=== PATIENT | female | born 1990 | race Caucasian/White ===

== ENCOUNTER 2019-12-20 09:54 | Outpatient (CLI) | payer BC, SELFPAY ==
--- NOTE | 2019-12-20 11:00 | NEURO_ITS ---
Patient Number: [id number] Impression: # Complains of pain in upper extremities. # No Carpal Tunnel Syndrome. # No ulnar neuropathy. # Normal needle/EMG exam. Nerve Conduction Studies Anti Sensory Summary Table Stim Site NR Peak (ms) P-T Amp (?V) Site1 Site2 Delta-P (ms) Dist (cm) Isaac (m/s) Left Median Anti Sensory (2-3nd Digit) Wrist 2.5 80.0 Wrist 2-3nd Digit 2.5 14.0 56 Wrist 2.5 83.4 Wrist 2-3nd Digit 2.5 14.0 56 Right Median Anti Sensory (2-3nd Digit) Wrist 2.6 66.6 Wrist 2-3nd Digit 2.6 14.0 54 Wrist 2.4 62.5 Wrist 2-3nd Digit 2.6 14.0 54 Left Radial Anti Sensory (Base 1st Digit) Wrist 2.5 27.8 Wrist Base 1st Digit 2.5 0.0 Right Radial Anti Sensory (Base 1st Digit) Wrist 2.2 21.8 Wrist Base 1st Digit 2.2 0.0 Left Ulnar Anti Sensory (5th Digit) Wrist 2.3 54.5 Wrist 5th Digit 2.3 14.0 61 Right Ulnar Anti Sensory (5th Digit) Wrist 2.3 60.0 Wrist 5th Digit 2.3 14.0 61 Motor Summary Table Stim Site NR Onset (ms) O-P Amp (mV) Site1 Site2 Delta-0 (ms) Dist (cm) Isaac (m/s) Left Median Motor (Abd Poll Brev) Wrist 3.1 4.9 Elbow Wrist 5.1 30.0 59 Elbow 8.2 3.0 Right Median Motor (Abd Poll Brev) Wrist 2.9 8.8 Elbow Wrist 4.5 29.0 64 Elbow 7.4 3.0 Left Ulnar Motor (Abd Dig Minimi) Wrist 2.3 5.3 A Elbow Wrist 4.9 31.0 63 A Elbow 7.2 4.9 Right Ulnar Motor (Abd Dig Minimi) Wrist 3.0 7.6 A Elbow Wrist 5.2 31.0 60 A Elbow 8.2 6.2 F Wave Studies NR F-Lat (ms) L-R F-Lat (ms) Left Median (Mrkrs) (Abd Poll Brev) 28.71 0.53 Right Median (Mrkrs) (Abd Poll Brev) 29.24 0.53 Left Ulnar (Mrkrs) (Abd Dig Min) 27.34 1.03 Right Ulnar (Mrkrs) (Abd Dig Min) 28.38 1.03 EMG Side Muscle Nerve Root Ins Act Fibs Amp Dur Recrt Comment Right 1stDorInt Ulnar C8-T1 Nml Nml Nml Nml Nml Right Ext Indicis Radial (Post Int) C7-8 Nml Nml Nml Nml Nml Right Ext Digitorum Radial (Post Int) C7-8 Nml Nml Nml Nml Nml Right BrachioRad Radial C5-6 Nml Nml Nml Nml Nml Right PronatorTeres Median C6-7 Nml Nml Nml Nml Nml Right Abd Poll Brev Median C8-T1 Nml Nml Nml Nml Nml Left 1stDorInt Ulnar C8-T1 Nml Nml Nml Nml Nml Left Ext Indicis Radial (Post Int) C7-8 Nml Nml Nml Nml Nml Left Ext Digitorum Radial (Post Int) C7-8 Nml Nml Nml Nml Nml Left BrachioRad Radial C5-6 Nml Nml Nml Nml Nml Left PronatorTeres Median C6-7 Nml Nml Nml Nml Nml Left Abd Poll Brev Median C8-T1 Nml Nml Nml Nml Nml Right ABD Dig Min Ulnar C8-T1 Nml Nml Nml Nml Nml Left ABD Dig Min Ulnar C8-T1 Nml Nml Nml Nml Nml MTDD
== END 2019-12-20 09:55 | disposition home or self-care (01) ==
LOC: ANHNEURO 10:06
PROVIDERS: PCP Internal Medicine; Visit Provider Internal Medicine
DX: M79.622 Pain in left upper arm (principal); M79.621 Pain in right upper arm
CPT/HCPCS: 95886; 95911

== ENCOUNTER 2021-01-07 10:00 | Outpatient (CLI) | payer BC, SELFPAY ==
--- NOTE | ~2021-01-07 | XR_ITS ---
EXAMINATION: XR hand LT min 3V EXAM DATE: 01/07/2021 10:15 INDICATION:. No known recent injury provided at this time. Pain of the left thumb. TECHNIQUE: Left hand frontal, lateral and oblique projections obtained and reviewed. There is no aleksandar or study for comparison. FINDINGS: Left metacarpal bones are unremarkable. There are no acute fractures or dislocations ident ified. There is no subcutaneous gas. The soft tissue is unremarkable. There are no radiopaque for eign bodies. IMPRESSION: Unremarkable left hand x-ray. Reviewed, dictated and finalized at location A.
== END 2021-01-07 10:01 | disposition home or self-care (01) ==
PROVIDERS: PCP Internal Medicine; Visit Provider Nurse Practitioner
DX: M79.645 Pain in left finger(s) (principal)
CPT/HCPCS: 73130

== ENCOUNTER 2021-01-20 13:27 | Outpatient (CLI) | payer BC, SELFPAY ==
--- NOTE | ~2021-01-20 | MR_ITS ---
EXAMINATION: MR hand LT wo con DATE: 01/20/2021 14:32 INDICATION: Left thumb injury and pain and swelling at the first interphalangeal joint. TECHNIQUE: Magnetic resonance imaging (MRI) of the left hand was performed without intravenous contra st. Sequences included axial, sagittal, and coronal T2-weighted FS FSE and T1-weighted FS FSE and cor onal PD-weighted FS FSE. COMPARISON: Left hand radiographs 01/07/2021 FINDINGS: Bone alignment is normal. No fracture. There is no complete collateral ligament tear. There is a small volume of fluid adjacent to the flexor and extensor tendons at the first interphalangeal joint. The tendons are normal. The flexor pulleys are normal. IMPRESSION: 1. No specific injury identified. Reviewed, dictated and finalized at location A.
== END 2021-01-20 13:28 | disposition home or self-care (01) ==
PROVIDERS: PCP Internal Medicine; Visit Provider Nurse Practitioner
DX: M79.645 Pain in left finger(s) (principal)
CPT/HCPCS: 73218

== ENCOUNTER 2021-08-24 02:08 | Day surgery (SDC) | payer BC, SELFPAY ==
[2021-08-14 12:49] VITALS: BMI 32.8
[2021-08-24 08:07] VITALS: BP 106/64; PULSE 65; RESP 18; TEMP 36.2; O2SAT 98
--- NOTE | 2021-08-24 08:13 | P.PNAN_ITS ---
Anes - Initial Pre Proc Eval Procedure: Operation Date: 08/24/21 09:00 Proposed Procedures p Colonoscopy - Ian Arias MD Date/Time: 08/24/21 08:13 Surgeon: Ian Arias MD Pre Op Diagnosis: melena Patient Data Age: 31 Gender: F Height: 1.7 m Weight: 95 kg Allergies Allergy/AdvReac Type Severity Reaction Status Date / Time povidone-iodine Allergy Mild Hives Verified 08/24/21 08:06 iodine Allergy Unknown Hives Verified 08/24/21 08:06 shellfish derived Allergy Anaphylaxis Verified 08/24/21 08:06 Home Medications Medication Instructions Recorded Confirmed Type alprazolam 0.5 mg tablet 0.5 mg PO DAILY PRN #30 tablet 11/26/20 08/14/21 Rx sertraline 100 mg tablet 100 mg PO DAILY #90 tablet 05/05/21 08/14/21 Rx sertraline 50 mg tablet 50 mg PO DAILY #90 tablet 05/05/21 08/14/21 Rx bupropion HCl 150 mg 24 hr tablet, See Rx Instructions .ROUTE 07/13/21 08/14/21 Rx extended release .COMPLEX #90 tablet phentermine 37.5 mg tablet 37.5 mg PO DAILY #30 tablet 07/17/21 08/14/21 Rx Patient hx anesthesia problems: none Family hx anesthesia problems: none Results Review: All pre-operative results and documents have been reviewed as part of the pre-operative evaluation. [facility] Past Medical History Medical History (Updated 07/17/21 @ 11:32 by Tania Resendiz NP) Anxiety Diabetes mellitus Elevated liver enzymes Hyperglycemia Major depressive disorder Myalgia Obesity (BMI 30.0-34.9) Personal history of latent tuberculosis infection Polyarthralgia Family History Family History Mother Family history of thyroid disease Diabetes mellitus Family history of gastrointestinal disorder Family history of irritable bowel syndrome Family history of lupus erythematosus Family history of diabetes mellitus in first degree relative Father Family history of alcoholism Social History Social History (Updated 07/17/21 @ 11:01 by Lianne Bender) Social History: hkyqlevm-1-3 cups daily Smoking packs per day: 0.5 Smoking cigarettes per day: 10.0 Years smoked: 5 Smoking pack-years: 2.50 Smoking status: Former smoker Tobacco type: cigarettes Smoking end date: 10/10/10 Alcohol intake: current Alcohol use details: Pt drinks occasionally. Substance use: never Substance use type: does not use Living arrangements: with friend(s) Spiritual care concerns: No Anes - Eval Final PreProcedure Day of Procedure 08/24/21 08:13 Patient weight: obese Heart: regular rate and rhythm Lungs: clear to auscultation and normal air movement Airway: Mallampati scale class II Neurological: alert and oriented Last oral intake: >/= 8 hours ASA classification: III Emergent: no Anesthetic plan: proceed Anesthesia type and monitoring: general GIVS Results Review: All pre-operative results and documents have been reviewed as part of the pre-operative evaluation. Informed Consent: The patient's anesthetic plan and its attendant risks and benefits were discussed with the patient/family/POA. Questions were solicited and answers provided to the satisfaction of the patient/family/POA.
[2021-08-24] MEDS: LACTATED RINGERS 1,000 ML 150 ML IV CONT (08:18)
[2021-08-24 08:21] VITALS: BMI 34.2
--- NOTE | 2021-08-24 08:45 | WPDGICN ---
Assessment and Plan Assessment and plan (1) Blood in stool: Code(s): K92.1 - Melena Status: Acute Assessment and Plan: Patient had bloody stools that occurred 1 day 1 month ago. Plan is for colonoscopy to evaluate more thoroughly. Further recommendations will be given after endoscopy. GI Consult Note Consult date/time: 08/24/21 08:45 HPI: Nichelle Elizabeth is a 31 year old female Presents for colonoscopy. Patient reports a 1 day history of bloody stools that occurred month and a half ago. It was associated with cramping. She has not had bleeding before after that. She states it was relatively bright blood that was admixed with her stools. Patient also reports that she has intermittently had nose bleeds and vaginal bleeding. She relates most of this after receiving a COVID vaccine. She denies any weight loss. Her family history is noncontributory. She has never had prior colonoscopy. Patient presents today for evaluation Review of Systems Review of Systems: All systems reviewed & are unremarkable except as noted in HPI and below PMFSH Past Medical History Medical History (Updated 08/24/21 @ 08:46 by Ian Arias MD) Anxiety Diabetes mellitus Elevated liver enzymes Hyperglycemia Major depressive disorder Myalgia Obesity (BMI 30.0-34.9) Personal history of latent tuberculosis infection Polyarthralgia Family History Family History Mother Family history of thyroid disease Diabetes mellitus Family history of gastrointestinal disorder Family history of irritable bowel syndrome Family history of lupus erythematosus Family history of diabetes mellitus in first degree relative Father Family history of alcoholism Social History Social History (Updated 07/17/21 @ 11:01 by Lianne Bender) Social History: pcskxahs-1-7 cups daily Smoking packs per day: 0.5 Smoking cigarettes per day: 10.0 Years smoked: 5 Smoking pack-years: 2.50 Smoking status: Former smoker Tobacco type: cigarettes Smoking end date: 10/10/10 Alcohol intake: current Alcohol use details: Pt drinks occasionally. Substance use: never Substance use type: does not use Living arrangements: with friend(s) Spiritual care concerns: No Meds Home Medications and Allergies Home Medications Medication Instructions Recorded Confirmed Type alprazolam 0.5 mg tablet 0.5 mg PO DAILY PRN #30 tablet 11/26/20 08/14/21 Rx sertraline 100 mg tablet 100 mg PO DAILY #90 tablet 05/05/21 08/14/21 Rx sertraline 50 mg tablet 50 mg PO DAILY #90 tablet 05/05/21 08/14/21 Rx bupropion HCl 150 mg 24 hr tablet, See Rx Instructions .ROUTE 07/13/21 08/14/21 Rx extended release .COMPLEX #90 tablet phentermine 37.5 mg tablet 37.5 mg PO DAILY #30 tablet 07/17/21 08/14/21 Rx Allergies Allergy/AdvReac Type Severity Reaction Status Date / Time povidone-iodine Allergy Mild Hives Verified 08/24/21 08:06 iodine Allergy Unknown Hives Verified 08/24/21 08:06 shellfish derived Allergy Anaphylaxis Verified 08/24/21 08:06 Vital Signs Vital Signs - 24 hr 08/24/21 08:07 Temperature 97.2 F L Pulse Rate 65 Respiratory Rate 18 Blood Pressure 106/64 Pulse Oximetry 98 Exam Narrative: physical exam reveals patient to be alert. Vital signs stable. HEENT exam is unremarkable. Patient is anicteric. Lungs are clear to auscultation and percussion. Heart is without murmur or extra sounds. Abdominal exam bowel sounds are present soft nontender with no organomegaly. Digital external rectal exam is normal.
[2021-08-24 09:14] VITALS: BP 101/63; PULSE 82; RESP 19; O2SAT 100
[2021-08-24 09:24] VITALS: BP 97/66; PULSE 68; RESP 15; O2SAT 100
[2021-08-24 09:29] VITALS: BP 101/71; PULSE 59; RESP 15; O2SAT 100
== END 2021-08-24 09:44 | disposition home or self-care (01) ==
PROVIDERS: PCP Internal Medicine; Visit Provider Internal Medicine Gastroenterology
PROC: 0DJD8ZZ Inspection of Lower Intestinal Tract, Via Natural or Artificial Opening Endoscopic (ICD-10-PCS; CPT 45378; principal; 2021-08-24 09:00)
DX: Z12.11 Encounter for screening for malignant neoplasm of colon (principal); K64.8 Other hemorrhoids; F41.9 Anxiety disorder, unspecified; E11.9 Type 2 diabetes mellitus without complications; R74.01 Elevation of levels of liver transaminase levels; E11.65 Type 2 diabetes mellitus with hyperglycemia; F32.9 Major depressive disorder, single episode, unspecified; M79.10 Myalgia, unspecified site; M25.50 Pain in unspecified joint; Z87.891 Personal history of nicotine dependence; E66.9 Obesity, unspecified; Z68.34 Body mass index [BMI] 34.0-34.9, adult
CPT/HCPCS: 45378; J2704; J7120